=== PATIENT | female | born 1990 | race Caucasian/White ===

== ENCOUNTER → 2019-03-26 | Outpatient (CLI) | payer SELFPAY ==
[2012-10-01 12:31] VITALS: BP 97/61
[~2019-03-26] MED LIST: ALEVE220 MG; HYDROCODONE BIT; PRILOSEC 20MG20 MG; SPRINTEC 35 MCG1 TAB
== END ==
LOC: LAB 09:23
DX: N39.0 Urinary tract infection, site not specified (principal); N75.0 Cyst of Bartholin's gland; R30.0 Dysuria